=== PATIENT | female | born 1975 | race Caucasian/White ===

== ENCOUNTER 2022-03-15 10:26 | Outpatient (CLI) | payer OTHER | END 2022-03-15 10:33 | disposition home or self-care (01) | LOC: NUCLEAR 10:26 | PROVIDERS: ATTEND Internal Medicine Hematology & Oncology | DX: C50.411 Malignant neoplasm of upper-outer quadrant of right female breast (principal); Z51.11 Encounter for antineoplastic chemotherapy | CPT/HCPCS: 78815; A9552 ==

== ENCOUNTER 2022-03-17 07:24 | Outpatient (CLI) | payer OTHER | END 2022-03-17 07:34 | disposition home or self-care (01) | LOC: NUCLEAR 07:24 | PROVIDERS: ATTEND Internal Medicine Hematology & Oncology | DX: C50.411 Malignant neoplasm of upper-outer quadrant of right female breast (principal); Z51.11 Encounter for antineoplastic chemotherapy | CPT/HCPCS: 78815; A9552 ==